=== PATIENT | male | born 1965 | race Caucasian/White ===

== ENCOUNTER 2025-09-02 06:50 | Day surgery (SDC) | payer BC, SELFPAY ==
[2025-09-02] VITALS (23 sets, daily range): BP systolic 94–125; BP diastolic 61–83; PULSE 55–85; RESP 12–16; TEMP 36.2–37.2; O2SAT 91–98; BMI 24.7
--- NOTE | 2025-09-02 07:19 | W.PM.H&PU ---
History & Physical Update History & Physical Update H&P Reviewed and patient assessed: No changes noted
[2025-09-02] MEDS: SODIUM CHLORIDE 0.9 % (FLUSH) 10 ML SYRINGE IVF (07:40)
[2025-09-02] MEDS: ACETAMINOPHEN 500 MG TABLET 1000 MG PO (07:40)
[2025-09-02] MEDS: OXYCODONE (CR) 10 MG TAB.ER.12H PO (07:40)
[2025-09-02] MEDS: LACTATED RINGERS 1000 ML 1,000 ML 100 ML IV ×2 (07:45→12:15)
--- NOTE | 2025-09-02 08:26 | SUR.PREOP ---
TIME?OUT:?0831 PT/RN/MDA?VERIFICATION?OF?SURGICAL?SITE-RIGHT KNEE,?PROCEDURE, NERVE BLOCK?AND?CONSENT OBTAINED?PRIOR?TO?INVASIVE?PROCEDURE.
[2025-09-02] MEDS: MIDAZOLAM HCL 1 MG/ML inj IVP (08:33)
[2025-09-02] MEDS: TRANEXAMIC ACID 100 MG/ML INJ 1000 MG IV (09:05)
--- NOTE | 2025-09-02 09:20 | W.PM.NB ---
Nerve Block Nerve Block Time Seen by Provider: 08:31 Date Seen: 09/02/25 Type of block requested by surgeon for post-operative analgesia: adductor canal Side: right Time out performed: Yes Verification of patient name: Yes Verification of date of : Yes Site marking: site marked Name of person performing procedure: Amaury Continuous monitoring Was continuous monitoring of O2 sat, B/P, cardiac monitor technician, recorded every 15 minutes?: Yes Procedure Checklist: sterile prep, needles and gloves Ultrasound guided. Images saved: Yes Medications given in 5ml increments after negative aspiration: Marcaine %: 0.25 mL: 15 Needle gauge: 20 Precedex (mcg): 25 Patient tolerated procedure well: Yes Block Charges Block Charge (with Pro Fee): Femoral Nerve Use of Ultrasound Machine for Block: Yes- US Guidance/pain block
--- NOTE | 2025-09-02 09:21 | W.PM.NB ---
Nerve Block Nerve Block Time Seen by Provider: 08:31 Date Seen: 09/02/25 Type of block requested by surgeon for post-operative analgesia: geniculars Side: right Time out performed: Yes Verification of patient name: Yes Verification of date of : Yes Site marking: site marked Name of person performing procedure: Amaury Continuous monitoring Was continuous monitoring of O2 sat, B/P, air sampling and monitoring, recorded every 15 minutes?: Yes Procedure Checklist: sterile prep, needles and gloves Ultrasound guided. Images saved: Yes Medications given in 5ml increments after negative aspiration: Marcaine %: 0.25 mL: 9 Needle gauge: 25 Patient tolerated procedure well: Yes Block Charges Block Charge (with Pro Fee): Genicular Nerve Block
--- NOTE | 2025-09-02 10:09 | PM.ORPRC ---
Procedure Note Date of procedure: 09/02/25 Procedure: PREOPERATIVE DIAGNOSIS: 1. Right knee osteoarthritis, primary, severe POSTOPERATIVE DIAGNOSIS: 1. Right knee osteoarthritis, primary, severe PROCEDURE: 1. Right total knee arthroplasty, Press-Fit, Rotating Platform - No tourniquet SURGEON: Yves Ac MD. MERCERIZING RANGE CONTROLLER: GRETCHEN Maharaj - Of note, a skilled chiropractor assistant was critical for this case to aid in patient positioning, tissue retraction, limb manipulation/positioning, and closure. ANESTHESIA: Spinal anesthetic EBL: 100ml IMPLANTS: DePuy J&J uncemented TKA - Attune PS pressfit femur size 6 regular Size 6 pressfit tibia Rotating Platform 5mm RP poly spacer 38 mm Affixium patella TOURNIQUET: None COMPLICATIONS: None evident INDICATIONS: The patient is a pleasant 59-year-old male who has experienced severe right knee pain and difficulty bearing weight. Workup included x-rays which revealed severe osteoarthrosis in the knee. Given the deformity, the dysfunction, and the pain, as well as the failure of nonoperative management, recommendation was made for surgery. FINDINGS: Full-thickness chondral loss diffusely throughout the lateral compartment. To lesser degree patellofemoral and medial compartments. Essentially absent lateral meniscus consistent with previous open meniscectomy. Medial meniscus showed some degenerative change. Quality bone encountered. DESCRIPTION OF PROCEDURE: Following a thorough discussion of risks, benefits, and alternatives consent was obtained and the right knee was marked. The patient was brought to the operating room and placed supine on the operating table. Induction of anesthesia was undertaken. 1 g IV Ancef and 1 g tranexamic acid was administered within 1 hr of incision preoperatively. Proper time-out was performed identifying proper patient, site, procedure. The operative extremity was prepped and draped in the appropriate sterile fashion using ChloraPrep after the patient was positioned supine with all bony prominences well padded. A longitudinal, anterior, midline skin incision was made starting approximately 3cm proximal to the superior pole of the patella and advanced distal to the tibial tubercle. A sub vastus approach was utilized. After mobilizing the patella, the retropatellar fatpad was resected and the synovium in the suprapatellar pouch excised to visualize the anterior femoral cortex. Patellar prep showed initial measurement/thickness of 26 mm. It was resected back to approximately 15 mm. The patella prep was completed with drilling and a trial placed followed by a protector plate until final component implantation. Femoral preparation was performed via an intramedullary guide. Step drill allowed access into the femoral canal. The distal cutting guide was placed with 5? of valgus and 10 mm cut on the distal femur. Femur was sized using a posterior referencing guide in 3? of external rotation. This was found to have a best fit with the sizing noted above. The 4 in 1 cutting block was then placed, and the distal femur shaped accordingly. The box cut was then completed. We turned our attention to the proximal tibia. Extramedullary guide was utilized for cutting with the goal of being 90 degree cut from the mechanical axis of the tibia in the varus/valgus plane utilizing tibial crest as the primary alignment. Initially a 3 mm resection was performed from the medial tibial plateau. Ultimately, balancing was achieved in both flexion and extension in both varus and valgus. The knee was able to achieve full extension comfortably. It was sized to be a best fit with as noted above. At this stage, trial implants were removed, the tibia and femoral and patellar components were opened and inserted. The real poly spacer was opened and inserted. A 3 min Betadine soak performed. Finally, a final irrigation round with normal saline was performed. Closure performed with 0 PDS and #0 Stratafix for the quad tendon/retinaculum. 2-0 Vicryl/Stratafix for the subcutaneous and 4-0 Monocryl for subcuticular closure. Dressings were applied and the patient was awoken from anesthesia and transferred the PACU in stable condition. A skilled chiropractor assistant was critical for this case to aid in patient positioning, tissue retraction, bone exposure, limb manipulation/positioning, patient safety, and closure. PLAN: 1. Weight bear as tolerated operative extremity. 2. 23 hr perioperative antibiotics. 3. Ice. 4. PT/OT consults for ambulation assistance/mobility education. 5. Social work consult for discharge planning. 6. DVT prophylaxis with at SCDs, and aspirin twice daily.
--- NOTE | 2025-09-02 10:36 | CRLHL7_ITS ---
For Patients: As a result of the Cures Act, medical imaging exams and procedure reports are released immediately into your electronic medical record. You may view this report before your referring provider. If you have questions, please contact your health care provider. Indication: Total knee replacement Technique: Two views right knee Findings/Impression: Hardware from a right total knee arthroplasty is in satisfactory position. Bone alignment is normal. No sign of acute fracture. Postop changes are within normal limits. Dictated by Micah Blankenship MD @ 09/02/2025 11:19:50 AM (Electronically Signed)
--- NOTE | 2025-09-02 10:38 | P.ANES_ITS ---
Anesthesia Charges Start Date/Time Anesthesia Start Date: 09/02/25 Anesthesia Start Time: 08:48 Stop Date/Time Anesthesia Stop Date: 09/02/25 Anesthesia Stop Time: 10:37 Coding CPT Codes CPT Codes: ANESTH KNEE ARTHROPLASTY - 71756 ([id number]) P2 - PATIENT W/MILD SYST DISEASE, QK - INSURANCE RISK SURVEYOR 2-4 CNCRNT ANES PROC
--- NOTE | 2025-09-02 10:38 | W.ANESCHARGE ---
Anesthesia Charges Start Date/Time Anesthesia Start Date: 09/02/25 Anesthesia Start Time: 08:48 Stop Date/Time Anesthesia Stop Date: 09/02/25 Anesthesia Stop Time: 10:37 Coding CPT Codes CPT Codes: ANESTH KNEE ARTHROPLASTY - 46557 ([id number]) P2 - PATIENT W/MILD SYST DISEASE, QK - BAG MACHINE OPERATOR 2-4 CNCRNT ANES PROC
--- NOTE | 2025-09-02 11:06 | SUR.PHASEI ---
patient met discharge criteria per anesthesia
--- NOTE | 2025-09-02 11:13 | P.ANES_ITS ---
Anesthesia Charges Start Date/Time Anesthesia Start Date: 09/02/25 Anesthesia Start Time: 08:48 Stop Date/Time Anesthesia Stop Date: 09/02/25 Anesthesia Stop Time: 10:37 Coding CPT Codes CPT Codes: ANESTH KNEE ARTHROPLASTY - 09418 ([id number]) P2 - PATIENT W/MILD SYST DISEASE, QK - SULFIDE HEAD OPERATOR 2-4 CNCRNT ANES PROC, QX - SHARE HOLDER SVC W/ MD MED DIRECTION
--- NOTE | 2025-09-02 11:13 | W.ANESCHARGE ---
Anesthesia Charges Start Date/Time Anesthesia Start Date: 09/02/25 Anesthesia Start Time: 08:48 Stop Date/Time Anesthesia Stop Date: 09/02/25 Anesthesia Stop Time: 10:37 Coding CPT Codes CPT Codes: ANESTH KNEE ARTHROPLASTY - 77765 ([id number]) P2 - PATIENT W/MILD SYST DISEASE, QK - WAGON WINDER 2-4 CNCRNT ANES PROC, QX - LONGWALL HEADGATE OPERATOR SVC W/ MD MED DIRECTION
[2025-09-02] MEDS: IBUPROFEN 200 MG TABLET 600 MG PO (12:35)
--- NOTE | 2025-09-02 13:31 | SUR.PHASEII ---
Pt urinated in bed and also 550 cc in urinal. Pt did get lightheaded after standing up for a few minutes. Laid back down in bed and linen changed. Cool cloth placed on forehead. VSS. Will try to get up again later.
--- NOTE | 2025-09-02 14:54 | SUR.PHASEII ---
1430- pt states he would like to try PT. sat pt up side on bed tolerated activity. pt tolerated sprite, pt reports taking a nap. Nayeli COFFEY brought pt down to PT.
--- NOTE | 2025-09-02 15:29 | SUR.PHASEII ---
1525: Patient returned from PT via wheelchair. Successfully passed PT. Patient ambulatory to recliner with gait belt, walker, and stand by assist.
--- NOTE | 2025-09-02 16:32 | SUR.PHASEII ---
1558: pt back from PT, flex o writer operator going through discharge instructions with pt and . pt turned pale and became dizzy and lightheaded, lied pt flat on chair, vital took - 103/66 93% ra, cool washcloth given to pt. 1630: pt sitting up eating toast and drinking sprite.
== END 2025-09-02 17:30 | disposition home or self-care (01) ==
LOC: OR 06:51
PROVIDERS: Visit Provider Orthopaedic Surgery Sports Medicine
PROC: (CPT 27447; principal; 2025-09-02 08:45)
DX: M17.11 Unilateral primary osteoarthritis, right knee (principal); G89.18 Other acute postprocedural pain
CPT/HCPCS: 27447; 01402; 64447; 64454; 73560; 76942; 97110; 97116; 97161; 97530; A9270; C1776; J0665; J0690; J1100; J2250; J2371; J2405; J2704; J3010; J7120